=== PATIENT | male | born 1995 | race Caucasian/White ===

== ENCOUNTER → 2021-02-07 20:00 | Outpatient (CLI) | payer OTHER, SELFPAY | PROVIDERS: Visit Provider Nurse Practitioner Family | DX: Z20.822 Contact with and (suspected) exposure to COVID-19 (principal); U07.1 COVID-19 | CPT/HCPCS: U0003 ==

== ENCOUNTER → 2021-09-12 14:32 | Outpatient (CLI) | payer OTHER, SELFPAY ==
--- NOTE | 2021-09-12 14:51 | ECG_ITS ---
APPROVED REPORT Exam: Resting ECG HR:66 bpm ECG Measurements Heart Rate 66 AXES PA 158 P 20 QRSd 93 QRS 3 QT 346 T -9 QTc 360 Conclusion SINUS RHYTHM NORMAL ECG UNCONFIRMED REPORT Electronically signed by : Marcelo Suarez MD 09/12/2021 15:56:21
== END ==
PROVIDERS: PCP Family Medicine; Visit Provider Family Medicine
DX: R03.0 Elevated blood-pressure reading, without diagnosis of hypertension (principal)
CPT/HCPCS: 93005